=== PATIENT | male | born 1965 ===

== ENCOUNTER → 2018-11-13 21:11 | Outpatient (REF) | payer OTHER, SELFPAY ==
[2018-11-13 21:13] LABS: Bacteria Urine None Seen; RBC Urine None Seen (0-5/HPF); WBC Urine None Seen (0-5/HPF)
[2018-11-13 22:13] LABS: Hematocrit 50.4 % (41-53); Hemoglobin 16.9 g/dL (13.5-17.5); Mean Corpuscular HGB Conc 33.5 % (30-36); Mean Corpuscular Hemoglobin 31.9 PG (26-34); Mean Corpuscular Volume 95.4 fL (80-100); Platelet Count 300 X10^3/uL (150-400); Red Blood Cell Count 5.29 X10^6/uL (4.5-5.9); Red Cell Distribution Width 14.2 % (11.6-14.8); White Blood Cell Count 5.1 X10^3/uL (4.5-11.0)
[2018-11-13 22:14] LABS: Add Manual Diff / Slide Review YES
[2018-11-13 22:21] LABS: Alanine Aminotransferase 34 IU/L (21-72); Albumin 4.4 g/dL (3.5-5.0); Albumin Globulin Ratio 1.6 (1.0-2.8); Alkaline Phosphatase 62 U/L (38-126); Aspartate Aminotransferase 29 IU/L (17-59); Bilirubin Total 0.8 mg/dL (0.2-1.3); Blood Urea Nitrogen 16 mg/dL (9-20); Calcium 9.4 mg/dL (8.4-10.2); Carbon Dioxide 28 mmol/L (22-32); Chloride 102 mmol/L (98-107); Cholesterol 193 mg/dL (140-199); Estimated Glomerular Filt Rate > 60.0 mL/min (>60); Globulin 2.8 g/dL (1.7-4.1); Glucose 96 mg/dL (70-100); HDL Cholesterol 54 mg/dL (40-60); HEMOLYSIS < 15 (0-50); LDL Cholesterol Calculated 114 mg/dL (<100); Potassium 4.4 mmol/L (3.4-5.1); Sodium 141 mmol/L (137-145); Total Protein 7.2 g/dL (6.3-8.2); Triglycerides 124 mg/dL (35-150)
[2018-11-13 22:25] LABS: Appearance Urine UA CLEAR; Bilirubin Urine UA NEGATIVE (NEGATIVE); Color Urine UA YELLOW; Glucose Urine UA NEGATIVE (Normal); Ketones Urine UA NEGATIVE (NEGATIVE); Leukocyte Esterase Urine UA NEGATIVE (NEGATIVE); Nitrite Urine UA NEGATIVE (Negative); Occult Blood Urine UA NEGATIVE (Negative); Protein Urine UA NEGATIVE (Negative); Specific Gravity Urine UA 1.015 (1.000-1.035); Urobilinogen Urine UA 0.2 E.U./dL (0.2); pH Urine UA 7.5 (4.5-8.0)
[2018-11-13 22:30] LABS: Neutrophils Absolute Manual 2856 /uL (3000-5900); RBC Morphology Normal Morphology; Total Cells Counted 100
[2018-11-13 22:50] LABS: TSH w/ Reflex to FT4 2.78 uIU/mL (0.47-4.68)
[2018-11-14 04:02] LABS: Culture Indicated Urine Cult Not Indicated; Urine Comments Microscopic Normal
[2018-11-15 15:53] LABS: Sex Hormone Binding Globulin 24 nmol/L (10-50)
[2018-11-18 09:58] LABS: Testosterone Total 859 ng/dL (250-1100)
[2018-11-18 14:14] LABS: PSA Total 0.45 ng/mL (< 4.01)
[2018-11-18 17:06] LABS: Estradiol 70 pg/mL (< 40)
== END ==
LOC: LAB 21:11
PROVIDERS: Visit Provider Naturopath
DX: Z00.01 Encounter for general adult medical examination with abnormal findings (principal); Z13.89 Encounter for screening for other disorder; E29.1 Testicular hypofunction; K21.0 Gastro-esophageal reflux disease with esophagitis
CPT/HCPCS: 36415; 80053; 80061; 81001; 82670; 82728; 84153; 84154; 84270; 84402; 84403; 84443; 85025

== ENCOUNTER → 2019-04-01 21:44 | Outpatient (ROUT) | payer OTHER, SELFPAY ==
[2019-04-01 23:45] LABS: Add Manual Diff / Slide Review NO; Basophils Absolute Auto 0 /uL (0-100); Basophils Percent Auto 0.6 % (0-2); Eosinophils Absolute Auto 100 /uL (0-450); Eosinophils Percent Auto 1.9 % (2-4); Hematocrit 51.4 % (41-53); Lymphocytes Absolute Auto 1400 /uL (1100-4500); Lymphocytes Percent Auto 23.8 % (25-40); Mean Corpuscular HGB Conc 33.1 % (30-36); Mean Corpuscular Hemoglobin 31.5 PG (26-34); Mean Corpuscular Volume 95.2 fL (80-100); Monocytes Absolute Auto 600 /uL (0-900); Neutrophils Absolute Auto 3900 /uL (1500-7000); Neutrophils Percent Auto 63.7 % (50-75); Platelet Count 300 X10^3/uL (150-400); Red Cell Distribution Width 14.3 % (11.6-14.8)
[2019-04-02 05:14] LABS: Estradiol, Total 25.9 pg/mL
[2019-04-06 14:54] LABS: PSA Total 0.36 ng/mL (< 4.01)
== END ==
PROVIDERS: Visit Provider Naturopath
DX: E29.1 Testicular hypofunction (principal); K21.0 Gastro-esophageal reflux disease with esophagitis; F90.0 Attention-deficit hyperactivity disorder, predominantly inattentive type
CPT/HCPCS: 36415; 82670; 84153; 84154; 84270; 84402; 84403; 85025